=== PATIENT | male | born 1990 | race Caucasian/White ===

== ENCOUNTER 2018-01-14 09:43 | Emergency (ER) | payer BC, MEDICAID ==
[~2018-01-14] VITALS: Ht 175.3 cm; Wt 63.1 kg
[2018-01-14] MEDS ORDERED: ONDANSETRON ODT 4 MG ONE (10:30)
[2018-01-14] MEDS ORDERED: SODIUM CHLORIDE FLUSH 10ML SYR IVF ONE (10:30)
[2018-01-14] MEDS ORDERED: MORPHINE SULFATE 4 MG/ML, 1ML ONE ×2 (10:31→13:24)
[2018-01-14] MEDS: MORPHINE SULFATE 4 MG/ML, 1ML IVPush PRN ×2 (10:32→12:45)
[2018-01-14 11:02] LABS: BASOPHILS # (AUTO) 0.02 x10^3/uL (0-0.1); BASOPHILS % (AUTO) 0 % (0-1); EOSINOPHILS # (AUTO) 0.25 x10^3/uL (0-0.4); EOSINOPHILS % (AUTO) 3 % (1-7); LYMPHOCYTES # (AUTO) 0.69 x10^3/uL (1-3.4); LYMPHOCYTES % (AUTO) 9 % (22-44); MD NO; MEAN CORPUSCULAR HEMOGLOBIN 31.3 pg (27.5-34.5); MEAN CORPUSCULAR HGB CONC 33.5 g/dL (33.2-36.2); MEAN CORPUSCULAR VOLUME 93.4 fL (81-97); MEAN PLATELET VOLUME 8.7 fL (7.4-10.4); MONOCYTES # (AUTO) 0.68 x10^3/uL (0.2-0.8); MONOCYTES % (AUTO) 9 % (2-9); NEUTROPHILS # (AUTO) 5.78 x10^3/uL (1.8-6.8); NEUTROPHILS % (AUTO) 78 % (42-75); PLATELET COUNT 219 x10^3/uL (130-400); RED BLOOD COUNT 2.75 x10^6/uL (4.38-5.82)
[2018-01-14 11:09] LABS: INTERNATIONAL NORMALIZED RATIO 1.08 (0.93-1.1); PROTHROMBIN TIME 11.2 Seconds (9.6-11.5)
[2018-01-14 11:13] LABS: ALBUMIN 3.3 g/dL (3.4-5.0); ANION GAP 13 mmol/L (5-15); CALCIUM 9.2 mg/dL (8.5-10.1); CHLORIDE 94 mmol/L (98-107)
[2018-01-14 11:18] LABS: ALANINE AMINOTRANSFERASE 10 U/L (12-78); ALKALINE PHOSPHATASE 584 U/L (45-117); BILIRUBIN,TOTAL 0.5 mg/dL (0.2-1.0); CREATININE 7.04 mg/dL (0.7-1.3); TOTAL PROTEIN 7.3 g/dL (6.4-8.2)
[2018-01-14 11:24] LABS: TROPONIN I 0.135 ng/mL (0.000-0.045)
[2018-01-14] MEDS ORDERED: CEFTRIAXONE PMX 1GM/50ML 50 ML ONE (13:25)
[2018-01-14] MEDS ORDERED: CEFTRIAXONE PMX 1GM/50ML 50 ML IV ONE (13:30)
[2018-01-14 14:03] VITALS: BP 117/61
[2018-01-15] MEDS ORDERED: LISI-167 PO (10:15)
[2018-01-15] MEDS ORDERED: SEVE800T8 PO (10:15)
[2018-01-15] MEDS ORDERED: AMLO10TA6 PO (10:15)
[2018-01-15] MEDS ORDERED: CLON0.5T20 PO ×2 (10:15)
[2018-01-15] MEDS ORDERED: CARV-39 PO ×2 (10:15)
== END 2018-01-14 14:06 | disposition home or self-care (01) ==
LOC: ED 13:45
DX: R07.89 Other chest pain (principal); I10 Essential (primary) hypertension
CPT/HCPCS: 36415; 71045; 71250; 80053; 84484; 85025; 85610; 93005; 96365; 96375; 96376; 99285; J0696

== ENCOUNTER 2018-01-15 09:49 | Emergency (ER) | payer MEDICAID ==
[~2018-01-15] VITALS: Ht 175.3 cm; Wt 59.0 kg
[2018-01-15] MEDS ORDERED: CARV-39 PO ×2 (10:15)
[2018-01-15] MEDS ORDERED: CLON0.5T20 PO ×2 (10:15)
[2018-01-15] MEDS ORDERED: SEVE800T8 PO (10:15)
[2018-01-15] MEDS ORDERED: AMLO10TA6 PO (10:15)
[2018-01-15] MEDS ORDERED: LISI-167 PO (10:15)
[2018-01-15 10:41] LABS: BASOPHILS # (AUTO) 0.03 x10^3/uL (0-0.1); BASOPHILS % (AUTO) 0 % (0-1); EOSINOPHILS # (AUTO) 0.17 x10^3/uL (0-0.4); EOSINOPHILS % (AUTO) 2 % (1-7); LYMPHOCYTES % (AUTO) 10 % (22-44); MD NO; MEAN CORPUSCULAR HEMOGLOBIN 32.3 pg (27.5-34.5); MEAN CORPUSCULAR HGB CONC 34.4 g/dL (33.2-36.2); MEAN CORPUSCULAR VOLUME 93.9 fL (81-97); MONOCYTES # (AUTO) 0.78 x10^3/uL (0.2-0.8); MONOCYTES % (AUTO) 11 % (2-9); NEUTROPHILS # (AUTO) 5.35 x10^3/uL (1.8-6.8); NEUTROPHILS % (AUTO) 76 % (42-75); PLATELET COUNT 225 x10^3/uL (130-400); RED BLOOD COUNT 2.89 x10^6/uL (4.38-5.82); RED CELL DISTRIBUTION WIDTH 15.6 % (9.4-14.8)
[2018-01-15 10:52] LABS: INTERNATIONAL NORMALIZED RATIO 1.08 (0.93-1.1); PROTHROMBIN TIME 11.2 Seconds (9.6-11.5)
[2018-01-15 10:54] LABS: ALANINE AMINOTRANSFERASE 35 U/L (12-78); ALBUMIN 3.4 g/dL (3.4-5.0); ANION GAP 9 mmol/L (5-15); CALCIUM 9.7 mg/dL (8.5-10.1); CHLORIDE 93 mmol/L (98-107); CREATININE 4.55 mg/dL (0.7-1.3)
[2018-01-15] MEDS ORDERED: ONDANSETRON ODT 4 MG ONE (10:57)
[2018-01-15 10:58] LABS: ALKALINE PHOSPHATASE 617 U/L (45-117); BILIRUBIN,TOTAL 0.7 mg/dL (0.2-1.0); TOTAL PROTEIN 7.8 g/dL (6.4-8.2); TROPONIN I 0.096 ng/mL (0.000-0.045)
[2018-01-15] MEDS ORDERED: ONDANSETRON ODT 4 MG PO ONE (11:00)
[2018-01-15 11:50] VITALS: BP 123/74
== END 2018-01-15 11:52 | disposition home or self-care (01) ==
LOC: ED 11:46
DX: R06.00 Dyspnea, unspecified (principal); R07.89 Other chest pain; N19 Unspecified kidney failure; Z99.2 Dependence on renal dialysis
CPT/HCPCS: 36415; 80053; 84484; 85025; 85610; 85730; 93005; 99285; Q0162

== ENCOUNTER 2018-05-11 22:12 | Emergency (ER) | payer MEDICAID ==
[~2018-05-11] VITALS: Ht 167.6 cm; Wt 63.9 kg
[~2018-05-11 22:12] MED LIST: AMLO10TA6 PO; CARV-39 PO; CLON0.5T20 PO; LISI-167 PO; SEVE800T8 PO
--- NOTE | 2018-05-11 22:27 | NUR ---
PT STATES N/Vx1 DAY. DENIES FEVERS/ABD PAIN. DENIES ANY SYMPTOMS. STATES ABLE TO TOLERATE PO FLUID INTAKE, BUT NOT SOLID FOODS. STATES DIALYSIS Friday AND CURRENT ON DIALYSIS. PT TACHYCARDIC. MD AWARE. AWAITING MD ASSESSMENT.
[2018-05-11] MEDS ORDERED: ONDANSETRON 2MG/ML, 2ML IVPush ONE (22:30)
[2018-05-11] MEDS ORDERED: SODIUM CHLORIDE FLUSH 10ML SYR IVF ONE (22:30)
[2018-05-11] MEDS ORDERED: ONDANSETRON 2MG/ML, 2ML ONE (22:36)
[2018-05-11 22:46] LABS: BASOPHILS # (AUTO) 0.04 x10^3/uL (0-0.1); BASOPHILS % (AUTO) 1 % (0-1); EOSINOPHILS # (AUTO) 0.22 x10^3/uL (0-0.4); EOSINOPHILS % (AUTO) 3 % (1-7); LYMPHOCYTES # (AUTO) 0.88 x10^3/uL (1-3.4); LYMPHOCYTES % (AUTO) 12 % (22-44); MD NO; MEAN CORPUSCULAR HEMOGLOBIN 32.2 pg (27.5-34.5); MEAN CORPUSCULAR VOLUME 94.5 fL (81-97); MEAN PLATELET VOLUME 8.6 fL (7.4-10.4); MONOCYTES # (AUTO) 0.46 x10^3/uL (0.2-0.8); MONOCYTES % (AUTO) 6 % (2-9); NEUTROPHILS % (AUTO) 78 % (42-75); PLATELET COUNT 261 x10^3/uL (130-400); RED CELL DISTRIBUTION WIDTH 15.9 % (9.4-14.8)
[2018-05-11 22:57] LABS: ALANINE AMINOTRANSFERASE 10 U/L (12-78); ALBUMIN 3.6 g/dL (3.4-5.0); ANION GAP 15 mmol/L (5-15); CALCIUM 10.1 mg/dL (8.5-10.1); CHLORIDE 99 mmol/L (98-107)
[2018-05-11 23:00] LABS: ALKALINE PHOSPHATASE 724 U/L (45-117); BILIRUBIN,TOTAL 0.7 mg/dL (0.2-1.0); TOTAL PROTEIN 7.3 g/dL (6.4-8.2)
[2018-05-11 23:11] LABS: TROPONIN I 0.103 ng/mL (0.000-0.045)
[2018-05-11] MEDS ORDERED: FAMOTIDINE 20 MG TABLET ONE (23:22)
[2018-05-11] MEDS ORDERED: ACETAMINOPHEN 500 MG TABLET ONE (23:23)
--- NOTE | 2018-05-11 23:26 | NUR ---
PT REFUSING PEPCID AT THIS TIME. STATES "I DONT LIKE TAKING ANY NEW MEDICATIONS UNLESS I TALK TO MY DOCTOR FIRST." PT REQUESTING NARCOTIC PAIN MEDICATION AT THIS TIME. NOTIFIED. AWAITING NEW ORDERS.
[2018-05-11] MEDS ORDERED: ACETAMINOPHEN 500 MG TABLET PO ONE (23:30)
[2018-05-11] MEDS ORDERED: FAMOTIDINE 20 MG TABLET PO ONE (23:30)
[2018-05-11 23:33] VITALS: BP 172/105
--- NOTE | 2018-05-12 00:10 | NUR ---
PT GIVE PO FLUIDS AND PT TOLERATED PO INTAKE.
== END 2018-05-12 00:23 | disposition home or self-care (01) ==
LOC: ED 23:23
DX: K29.00 Acute gastritis without bleeding (principal); I12.9 Hypertensive chronic kidney disease with stage 1 through stage 4 chronic kidney disease, or unspecified chronic kidney disease; N18.9 Chronic kidney disease, unspecified
CPT/HCPCS: 36415; 71045; 80053; 83690; 84484; 85025; 93005; 96374; 99284; J2405

== ENCOUNTER 2018-12-11 19:58 | Inpatient (IN) | payer MEDICAID ==
[~2018-12-11] VITALS: Ht 175.3 cm; Wt 66.2 kg
[~2018-12-11 19:58] MED LIST changes: -AMLO10TA6 PO; +AMLO10TA8 PO
[2018-12-11] MEDS ORDERED: ONDANSETRON 2MG/ML, 2ML ONE (20:26)
[2018-12-11] MEDS ORDERED: ONDANSETRON ODT 8 MG PO PRN (20:30)
[2018-12-11] MEDS ORDERED: SODIUM CHLORIDE FLUSH 10ML SYR IVF ONE (20:30)
[2018-12-11] MEDS ORDERED: ONDANSETRON 2MG/ML, 2ML IVPush ONE (20:30)
[2018-12-11] MEDS ORDERED: SODIUM CHLORIDE 0.9% 1,000ML IVBOLUS ONE (20:30)
--- NOTE | 2018-12-11 20:30 | NUR ---
IV FLUIDS AND ZOFRAN ADMINISTERED PER ED PROVIDER ORDER AT BEDSIDE.
--- NOTE | 2018-12-11 20:37 | NUR ---
PT AMBULATORY TO THE RESTROOM AT THIS TIME. STATES HE NEEDS TO HAVE A BM.
--- NOTE | 2018-12-11 20:43 | NUR ---
PT RETURNED FROM RESTROOM, RECONNECTED TO IV FLUIDS AND PULSE OX/BP CUFF
[2018-12-11] MEDS ORDERED: MORPHINE SULFATE 4 MG/ML, 1ML ONE ×2 (20:49→21:48)
--- NOTE | 2018-12-11 20:53 | NUR ---
CXR AT THE BEDSIDE. FLUIDS CONTINUE TO INFUSE. CALL LIGHT IN REACH.
[2018-12-11 20:55] LABS: BASOPHILS # (AUTO) 0.05 x10^3/uL (0-0.1); BASOPHILS % (AUTO) 1 % (0-1); EOSINOPHILS % (AUTO) 7 % (1-7); LYMPHOCYTES # (AUTO) 1.07 x10^3/uL (1-3.4); LYMPHOCYTES % (AUTO) 19 % (22-44); MD NO; MEAN CORPUSCULAR VOLUME 93.7 fL (81-97); MEAN PLATELET VOLUME 8.7 fL (7.4-10.4); MONOCYTES # (AUTO) 0.32 x10^3/uL (0.2-0.8); MONOCYTES % (AUTO) 6 % (2-9); NEUTROPHILS # (AUTO) 3.95 x10^3/uL (1.8-6.8); NEUTROPHILS % (AUTO) 68 % (42-75); PLATELET COUNT 210 x10^3/uL (130-400); RED BLOOD COUNT 3.69 x10^6/uL (4.38-5.82); RED CELL DISTRIBUTION WIDTH 15.3 % (9.4-14.8)
[2018-12-11] MEDS ORDERED: MORPHINE SULFATE 4 MG/ML, 1ML IVPush ONE ×2 (21:00→22:00)
[2018-12-11 21:07] LABS: ALANINE AMINOTRANSFERASE 12 U/L (12-78); ANION GAP 19 mmol/L (5-15); CALCIUM 10.4 mg/dL (8.5-10.1); CHLORIDE 99 mmol/L (98-107)
[2018-12-11 21:09] LABS: ALKALINE PHOSPHATASE 927 U/L (45-117); BILIRUBIN,TOTAL 0.6 mg/dL (0.2-1.0); TOTAL PROTEIN 8.1 g/dL (6.4-8.2)
--- NOTE | 2018-12-11 21:37 | NUR ---
PT C/O CONTINUED PAIN AND NAUSEA AND CONTINUES TO BE HYPERTENSIVE. DISCUSSED W/ ED PROVIDER.
[2018-12-11] MEDS ORDERED: INSULIN SINGLE DOSE, ER SQ-INSULIN ONE (21:46)
[2018-12-11] MEDS ORDERED: METOCLOPRAMIDE 5 MG/ML, 2ML ONE (21:48)
[2018-12-11] MEDS ORDERED: METOCLOPRAMIDE 5 MG/ML, 2ML IVPush ONE (22:00)
[2018-12-11] MEDS ORDERED: DEXTROSE 50%, 50ML SYRINGE IVPush ONE (22:00)
[2018-12-11] MEDS ORDERED: ALBUTEROL 0.5%, 20ML NPPB ONE (22:00)
[2018-12-11] MEDS ORDERED: INSULIN REGULAR 100 UNITS/ML, 3ML VIAL IVPush ONE (22:00)
[2018-12-11] MEDS ORDERED: ALBUTEROL SULFATE 2.5 MG/3 ML ONE (22:19)
--- NOTE | 2018-12-11 22:20 | NUR ---
RT AT BEDSIDE FOR TREATMENT.
--- NOTE | 2018-12-11 22:26 | NUR ---
PT REPORTS IMPROVED SX FOLLOWING SECOND DOSE OF ANTI-EMETICS AND PAIN MEDICINE. AMBULATORY IN ROOM. VITAL SIGNS MAINTAINED.
[2018-12-11] MEDS ORDERED: CLONAZEPAM PO SCH (22:30)
--- NOTE | 2018-12-11 22:50 | NUR ---
GAVE REPORT TO YASMIN MERCEDES AND AWAITING TRANSPORT.
[2018-12-11] MEDS ORDERED: MINO2.5T PO (22:55)
[2018-12-11] MEDS ORDERED: ASPI-496 PO (22:56)
[2018-12-11] MEDS ORDERED: ATOR10TA9 PO (22:56)
--- NOTE | 2018-12-11 22:56 | NUR ---
PT NOW FEELS UP TO REVIEWING MEDICATION LIST. YASMIN MERCEDES AWARE. PT BEING TRANSPORTED AT THIS TIME.
[2018-12-11] MEDS ORDERED: hydrALAzine 20 MG/ML, 1ML IVPush PRN (23:00)
[2018-12-11] MEDS ORDERED: morphine SULFATE 10 MG/ML, 1ML IVPush PRN (23:00)
[2018-12-11] MEDS ORDERED: ONDANSETRON 2MG/ML, 2ML IVPush PRN (23:00)
[2018-12-11] MEDS ORDERED: ACETAMINOPHEN 325 MG TABLET PO PRN (23:00)
[2018-12-11] MEDS ORDERED: CYCLOBENZAPRINE 10 MG TABLET PO PRN (23:00)
[2018-12-11] MEDS ORDERED: DOCUSATE 100 MG CAPSULE PO PRN (23:00)
[2018-12-11] MEDS ORDERED: GUAIFENESIN/COD200MG-20MG/10ML LIQUID PO PRN (23:00)
[2018-12-11 23:13] VITALS: BP 165/110
[2018-12-11] MEDS: [UNRECOGNIZED DRUG - REMARK] MC SCH (23:30)
[2018-12-11] MEDS: HYDROcodone/APAP 5/325 TABLET PO PRN (23:46)
[2018-12-12 02:30] VITALS: BP 145/91
[2018-12-12 05:09] LABS: ANION GAP 13 mmol/L (5-15); CALCIUM 9.4 mg/dL (8.5-10.1); CHLORIDE 97 mmol/L (98-107); CREATININE 8.66 mg/dL (0.7-1.3)
[2018-12-12 05:10] LABS: BASOPHILS # (AUTO) 0.04 x10^3/uL (0-0.1); BASOPHILS % (AUTO) 1 % (0-1); EOSINOPHILS # (AUTO) 0.14 x10^3/uL (0-0.4); EOSINOPHILS % (AUTO) 3 % (1-7); LYMPHOCYTES # (AUTO) 0.78 x10^3/uL (1-3.4); LYMPHOCYTES % (AUTO) 17 % (22-44); MD NO; MEAN CORPUSCULAR HEMOGLOBIN 31.2 pg (27.5-34.5); MEAN CORPUSCULAR HGB CONC 33.7 g/dL (33.2-36.2); MEAN CORPUSCULAR VOLUME 92.6 fL (81-97); MEAN PLATELET VOLUME 8.1 fL (7.4-10.4); MONOCYTES # (AUTO) 0.31 x10^3/uL (0.2-0.8); MONOCYTES % (AUTO) 7 % (2-9); NEUTROPHILS # (AUTO) 3.47 x10^3/uL (1.8-6.8); NEUTROPHILS % (AUTO) 73 % (42-75); PLATELET COUNT 174 x10^3/uL (130-400); RED BLOOD COUNT 3.36 x10^6/uL (4.38-5.82); RED CELL DISTRIBUTION WIDTH 15.3 % (9.4-14.8)
[2018-12-12] MEDS ORDERED: SEVELAMER CARBONATE 800MG TAB PO SCH (07:00)
[2018-12-12] MEDS: [UNRECOGNIZED DRUG - REMARK] MC SCH (07:30)
[2018-12-12 07:40] VITALS: BP 160/81
[2018-12-12] MEDS: CARVEDILOL 25 MG TABLET PO SCH ×2 (08:08→19:49)
[2018-12-12] MEDS: AMLODIPINE 10 MG TAB PO SCH (08:10)
[2018-12-12] MEDS ORDERED: LISINOPRIL 40 MG TABLET PO SCH (09:00)
[2018-12-12] MEDS: HYDROcodone/APAP 5/325 TABLET PO PRN (12:43)
[2018-12-12] MEDS: SEVELAMER CARBONATE 800MG TAB PO SCH ×2 (12:43→17:51)
[2018-12-12 14:00] VITALS: BP 164/92
[2018-12-12 19:25] VITALS: BP 163/90
[2018-12-12 19:47] VITALS: BP 162/104
[2018-12-12] MEDS ORDERED: CLONAZEPAM PO SCH (21:00)
[2018-12-13 01:29] VITALS: BP 159/84
[2018-12-13 06:57] LABS: % IRON SATURATION 47 % (20-55); ALBUMIN 3.9 g/dL (3.4-5.0); ANION GAP 12 mmol/L (5-15); CHLORIDE 100 mmol/L (98-107); CREATININE 7.14 mg/dL (0.7-1.3); IRON LEVEL 76 mcg/dL (65-175); TOTAL IRON BINDING CAPACITY 162 mcg/dL (250-450)
[2018-12-13 07:35] VITALS: BP 168/115
[2018-12-13] MEDS: SEVELAMER CARBONATE 800MG TAB PO SCH (08:13)
[2018-12-13] MEDS: AMLODIPINE 10 MG TAB PO SCH (08:14)
[2018-12-13] MEDS: CARVEDILOL 25 MG TABLET PO SCH (08:14)
[2018-12-13 11:00] VITALS: BP 144/83
[2018-12-13] MEDS ORDERED: SEVELAMER CARBONATE 800MG TAB PO SCH (12:00)
[2018-12-13 13:00] VITALS: BP 142/81
[2018-12-13] MEDS ORDERED: LISINOPRIL 40 MG TABLET PO SCH (21:00)
== END 2018-12-13 14:38 | disposition home or self-care (01) | DRG 194 ==
LOC: ED 21:32 → EDIP 22:32 → 4WST 23:04
PROVIDERS: ADMIT Internal Medicine; ATTEND Internal Medicine
PROC: 5A1D70Z Performance of Urinary Filtration, Intermittent, Less than 6 Hours Per Day (ICD-10-PCS; principal; 2018-12-11)
PROC: 5A1D70Z Performance of Urinary Filtration, Intermittent, Less than 6 Hours Per Day (ICD-10-PCS; 2018-12-12)
DX: I13.2 Hypertensive heart and chronic kidney disease with heart failure and with stage 5 chronic kidney disease, or end stage renal disease (principal); E87.2 Acidosis; N18.6 End stage renal disease; E88.89 Other specified metabolic disorders; D63.1 Anemia in chronic kidney disease; E87.5 Hyperkalemia; E87.6 Hypokalemia; G89.29 Other chronic pain; I50.31 Acute diastolic (congestive) heart failure; Z83.3 Family history of diabetes mellitus; Z94.0 Kidney transplant status; Z99.2 Dependence on renal dialysis; Z91.040 Latex allergy status
CPT/HCPCS: 36415; 71045; 80048; 80053; 80069; 82728; 83540; 83550; 83690; 83735; 84100; 85025; 86704; 86706; 87340; 90935; 93005; 94640; 96361; 96374; 96375; 96376; G0378; J2405; J2270; J2765; J7030